=== PATIENT | female | born 1985 | race Caucasian/White ===

== ENCOUNTER 2017-02-26 12:36 | Outpatient (CLI) | payer OTHER ==
--- NOTE | 2017-02-27 07:40 | Ultrasound Report ---
OB ULTRASOUND: 02/26/2017 CLINICAL INDICATION: anatomy. TECHNIQUE: Real-time scanning was performed with parts counter representative static images obtained. LAST MENSTRUAL PERIOD 10/06/2016 Clinical Age 20 weeks 3 days US Age 20 weeks 1 day EFW Hadlock 331 g EFW% Hadlock --- Heart Rate 150 bpm EDC 07/13/2017 US EDC 07/15/2017 BPD [place] 20 weeks 4 days; Mean mm 48.2 HC [place] 19 weeks 6 days; Mean mm 172.7 AC [place] 20 weeks 3 days; Mean mm 151.5 FL Hadlock 19 weeks 5 days; Mean mm 31.4 Presentation variable Placental Location posterior Cervical Length 5.8 cm Amniotic Fluid 13.9 cm FINDINGS: There is a single viable intrauterine gestation, in variable position. heart rate is 150 BPM. The placenta is posterior, without evidence of previa. Amniotic fluid volume is normal, with an IGNACIO of 13.9. By size, the fetus measures 20.1 weeks (20.3 weeks by LMP). The following anatomic structures were visualized and appear normal: The intracranial contents, including the ventricles and posterior fossa; the lips and orbits; the spine; the heart, including 4 chamber view and outflow tracts, and diaphragm; the abdominal contents, including the stomach, the bilateral kidneys, and urinary bladder, as well as a normal 3 vessel cord insertion; 4 limbs. No free fluid or adnexal lesion is appreciated. IMPRESSION: SINGLE VIABLE INTRAUTERINE GESTATION, WITH SIZE IN KEEPING WITH LMP DATING. NORMAL ANATOMIC SURVEY. MTDD
== END 2017-02-26 12:37 | disposition home or self-care (01) ==
LOC: DI 12:36
PROVIDERS: ATTEND Nurse Practitioner Obstetrics & Gynecology
DX: Z36 Encounter for antenatal screening of mother (principal)
CPT/HCPCS: 76811

== ENCOUNTER 2017-04-09 11:21 | Outpatient (CLI) | payer OTHER ==
[2017-04-09 12:39] LABS: HCT - HEMATOCRIT 39.1 % (37.0-47.0); MEAN CORPUSCULAR HEMOGLOBIN 31.7 pg (27.0-31.0); MEAN CORPUSCULAR HGB CONC 33.2 g/dL (32.0-36.0); MEAN CORPUSCULAR VOLUME 95.6 fL (81.0-99.0); MEAN PLATELET VOLUME 8.4 fL (7.9-10.8); RED BLOOD COUNT 4.1 10^6/uL (4.20-5.40); RED CELL DISTRIBUTION WIDTH 13.4 % (12.0-15.0); WHITE BLOOD COUNT 12.2 x10^3/uL (4.8-10.8)
== END 2017-04-09 11:22 | disposition home or self-care (01) ==
LOC: LAB 11:21
PROVIDERS: ATTEND Nurse Practitioner Obstetrics & Gynecology
DX: Z36 Encounter for antenatal screening of mother (principal)
CPT/HCPCS: 36415; 82950; 86850

== ENCOUNTER 2017-06-10 16:06 | Outpatient (CLI) | payer OTHER | END 2017-06-10 16:07 | disposition home or self-care (01) | LOC: LAB.R 16:06 | PROVIDERS: ATTEND Registered Nurse | DX: Z36.85 Encounter for antenatal screening for Streptococcus B (principal) | CPT/HCPCS: 87081 ==

== ENCOUNTER 2017-07-20 00:42 | Inpatient (IN) | payer OTHER ==
[2017-07-20] MEDS ORDERED: OXYTOCIN 10 UNIT/ML VIAL IM ONE (01:13)
--- NOTE | 2017-07-20 01:20 | HISTORY & PHYSICAL EXAMINATION ---
Admit History - Instructions Chenega/Slash: -Left hand click circles element as positive or present. -Right hand click slashes element as negative or not present. - Visit Reason Visit Reason: Contractions (juan since 07/19/2017 @ 1600 w/ increased intensity since 0), Bloody show - : 1 Parity: 0 Premature: 0 Ectopic: 0 : 0 Care: positive: [facility], Other (transfer of care w/ relocation to [facility] from [place] @ 17 weeks' gestation) Risk/History: positive: None Complications This : positive: None Smoking Status: Never smoker - Mother's Labs Mother's Blood Type: positive: O Mother's RH: positive: Positive GBS: positive: Group B Step Negative Rubella Status: positive: Immune - Other Maternal History Other Maternal History: . Pre- weight 149lbs. Initial ultrasound 12/30/2016 at 12.1 wks gestation, Normal anatomy, nucal trans. 1.0mm (WNL), posterior placenta, normal cord insertion. Quad-neg. CF negative. 12/03/2016 Pap neg, GC/CT neg, Hgb 13.0, Hct 38.3, PLT 228, RPR non-reactive, Hep B non-reactive, O pos, antibody neg, Rubella immune, HIV non-reactive. Gtt WNL, CBC @ 28 weeks h/h 13.0/39.1 PLT 195K, FAS WNL, GBS negative. Jyoti presented for care to her previous provider @ 12 weeks' gestation w/ sure LMP & concordant 1st trimester US. She received consistent care for a total of 15 visits & gained a total of 39 pounds throughout her . She is well-supported by her , Darrick, and she plans limited intervention w/ an unmedicated delivery. She declines IV insertion & declines phlebotomy. Meds/Allgy - Home Medications Home Medications: Ambulatory Orders Medication Instructions Recorded Confirmed Pnv No.121/Iron/Folic Acid 1 each PO DAILY 07/20/17 07/20/17 [ Multivitamin Tablet] - Allergies Allergies/Adverse Reactions: Allergies Allergy/AdvReac Type Severity Reaction Status Date / Time No Known Drug Allergies Allergy Verified 07/20/17 01:22 Physical - Abdominal Exam Vital Signs: HR 77 BP 137/75 Contraction Frequency (min/apart): 2-3 Contraction Intensity: positive: Strong Uterine Resting Tone: positive: Soft - Monitoring Heart Rate Baseline: 140 Strip Review: positive: Category I - Presentation Presentation: positive: Vertex - Vaginal Exam Membranes: positive: Membranes intact Dilation (in cm): 7 Effacement (%): 100 Station: positive: 0 Cervical Position: positive: Anterior - Speculum Exam Speculum Exam Performed: positive: No - Other Notes Labor Progress Note/Additional Text: Jyoti is a 32 y/o @ 41 weeks' gestation by sure LMP consistent w/ 1st trimester US who received care beginning @ 12 weeks' gestation for a total of 15 visits. She had an intentional & had an uncomplicated course. She gained a total of 39# during the course of her . She screened negative for GBS @ 36 weeks' gestation. She received tdap & influenza vaccinations per CDC recommendations @ appropriate intervals during . She presents today w/ a complaint of uterine contractions intermittently since 1630 on 07/19/2017 w/ increasing intensity since 2229. She reports noticing increased bloody show & mucoid vaginal d/c, but she denies LOF. She reports good FM. She is hoping to have a minimally interventive labor & delivery experience & plans an unmedicated delivery. She is intending to utilizing breathing techniques & hydrotherapy for pain management. She is accompanied by her , Darrick, who is involved & very supportive. ROS: GEN: No fever, no malaise HEENT: No MONTOYA/vision changes LUNGS: no dyspnea, no wheezing, no cough HEART: no chest pain, no palpitations GI: no N/V/D, + BM 07/20/2017 : no dysuria, + mucoid vaginal d/c + bloody show, no LOF OB: +FM, + uterine contractions, increased intensity x3 hours, q 3 minutes MS: FROM, no pain, no swelling SKIN: No pruritus, no lesions NEURO: No numbness/tingling/weakness PSYCH: Mild anxiety, no depression PE: GEN: AAOX3, moderately uncomfortable, conversant gravid female HEENT: grossly normocephalic, atraumatic LUNGS: CTA b/l t/o HEART: RRR nls1s2, no M GI: Gravid, NT, lie longitudinal, presentation cephalic, position AIDA : No lesions, + bloody show, no LOF OB: EFM: BL 140bpm, + accels, no decels, mod variability; TOCO: UCs q2-3 min x60 -80 seconds, palpably strong; SVE: 7/100/0, IBOW, position AIDA MS: no edema, FROM t/o, negative Jessica's, no erythema SKIN: warm, dry, intact, no lesion NEURO: no focal deficit PSYCH: normal mood & affect, slight anxiety w/ discomfort w/ uterine contractions Plan for Labor - Plan For Labor : expectant Plan for Labor: Assessment: 32 y/o @ 41 weeks' gestation by 1st trimester US consistent w/ LMP in active, spontaneous labor Adequate pain control w/ desire for unmedicated labor/delivery GBS negative w/ IBOW FHTs cat I 1. Admit to [facility] as inpatient for active, spontaneous labor @ 41 weeks' gestation 2. Intermittent auscultation per protocol 3. Reviewed rationale for IV insertion/phlebotomy; pt articulates full understanding of risks & possible need for emergent insertion, elects IM Pitocin for AMTSL, declines IV insertion, declines phlebotomy 4. Hydrotherapy for discomfort @ present, labor support 5. Reassess cervical status w/ maternal urge to push 6. Anticipate 7. Reviewed plan of care w/ pt, partner & RN @ bedside; all in agreement, without concerns.
--- NOTE | 2017-07-20 02:45 | PROVIDER PROGRESS NOTE ---
Labor Progress Note - Uterine Monitoring Uterine Monitoring Mode: positive: Palpation Contraction Frequency (min/apart): 2-3 x90 seconds Contraction Intensity: positive: Strong Uterine Resting Tone: positive: Soft - Monitoring Monitor Mode: positive: Doppler/auscultation Heart Rate Baseline: 150 Decelerations: positive: None (no decreases auscultated through & after uterine contraction) - Vaginal Exam Dilation (in cm): deferred - Labor Progress Note Labor Progress Note/Additional Text: S: Jyoti reports increased pressure w/ uterine contractions, rates discomfort 10/10 when she is juan, no discomfort s/p contraction. Finding good relief w/ hydrotherapy, prefers to remain in tub. , Darrick , present @ bedside, supportive. O: AAOx3, uncomfortable gravid female IA: 150bpm, + increases, no decreases uterine contractions q2-3 min x90 seconds, palpably strong SVE deferred secondary to no clinical indication A: 32 y/o @ 41 weeks' gestation in spontaneous, active labor GBS negative, IBOW FHTs reassuring Adequate pain control w/ hydrotherapy; pt does not desire analgesia/anesthesia P: 1. continue hydrotherapy 2. Intermittent auscultation per protocol: q 30 minutes per AWHONN guidelines in active phase of 1st stage of labor 3. Reassess cervical status w/ maternal urge to push 4. Anticipate
[2017-07-20] MEDS ORDERED: LIDOCAINE 1% 50 ML MDV ONE (04:45)
[2017-07-20] MEDS ORDERED: HYDROCORTISONE 1% CREAM 28 GM TUBE PR PRN (05:17)
[2017-07-20] MEDS ORDERED: MAGNESIUM HYDROXIDE 2,400 MG/30 ML UDC PO PRN (05:17)
--- NOTE | 2017-07-20 05:29 | DELIVERY NOTE ---
Delivery Note - Labor Labor: positive: Spontaneous - Delivery Method Delivery Method: positive: Spontaneous vaginal delivery - Presentation Presentation: positive: Vertex, AIDA - left occiput anterior - Nuchal Cord Nuchal Cord: positive: None - Anesthetic Anesthetic Type: Anesthetic: positive: Lidocaine - 1% plain Volume: positive: Other (15mL) - Amniotic Fluid Description Amniotic Fluid Description: positive: Clear (SROM @ 0425) - Episiotomy Type Episiotomy Type: positive: None - Laceration Laceration: positive: 2nd degree, Perineal - Suture Suture Type: positive: Vicryl Suture Size: positive: 2-0, 3-0 - Delivery Outcome Delivery Outcome: positive: Livebirth - : positive: Placed in direct skin contact with mother, Suctioned, Bulb syringe, Stimulated, Warmed, [place] used, Warmer used [place] sex: positive: Female - Cord Cord: positive: 3 vessels - Placenta Placenta: positive: Intact, Spontaneous, Other (Trailing membranes, teased out w / Ring forceps) - Estimated Blood Loss Estimated Blood Loss (in cc): 300 - Post Delivery Events Post Delivery Events: positive: No post delivery events - Delivery Comments (Free Text/Narrative) Delivery Comments (Free Text/Narrative): Jyoti Riddle is a 32 y/o [id number] who presented @ 41 weeks' gestation in spontaneous, active labor @ 7cm of dilatation. She had experienced onset of noticeable contractions 07/19/2017 @ 1630 & dramatically increased intensity @ 2230. She labored & progressed spontaneously w/o analgesia & utilized hydrotherapy, direct labor support & breathing techniques for effective pain management. FHTs were monitored w/ monitor & handheld doppler & were reassuring t/o. She reported spontaneous urge to push & was found to be complete @ 0328, for a total first stage duration of 11 hours (6 hours of latent labor, 5 hours of active labor). She pushed w/ spontaneous urge utilizing stool to of viable female in AIDA position over a 2nd degree perineal laceration @ 0435, for a total 2nd stage duration of 1 hour, 7 minutes. SROM for moderate CAF @ 0425, for a total ruptured duration of 10 minutes. Infant stunned w/ good response to tactile stimulation & suction, lusty cry. Apgars 7 at 1 minute & 9 at 5 minutes. Placed in direct skin-to- skin contact w/ mother immediately following delivery. Delayed cord clamping until cessation of pulsation, then cord clamped x2 by CNM, cut by FOB. 3VC noted, cord blood obtained. 10u IM Pitocin administered following delivery of infant secondary to other nursing duties @ the time of delivery of anterior shoulder--modified AMTSL. Placenta delivered spontaneously, Tessy, @ 0445, for a total 3rd stage duration of 10 minutes. Trailing membranes teased out easily using ring forceps. Vagina & perineum inspected & 2nd degree perineal laceration noted. Mother assisted to bed & repair completed in normal, sterile fashion s/p infiltration w/ 15mL 1% lidocaine using 2-0 & 3-0 vicryl. Hemostatic & well-approximated. FF @ U-1. EBL 300mL. Mother & infant stable. Infant nuzzling @ breast w/in 30 minutes of delivery. FOB @ bedside, involved & very supportive. They have named their baby "Shayy Soto" & plan no pp contraception. Jyoti plans to return to work in 16 weeks & plans exclusive .
[2017-07-20] MEDS: IBUPROFEN 800 MG TABLET PO SCH ×3 (06:16→18:29)
[2017-07-20] MEDS: ACETAMINOPHEN 500 MG TABLET PO SCH ×2 (06:16→16:12)
[2017-07-20] MEDS: WITCH HAZEL/GLYCERIN 1 EACH MED..PAD TOP PRN ×2 (06:17→11:07)
[2017-07-20] MEDS: HYDROCORTISONE/PRAMOXINE 10 GM PR PRN ×2 (06:17→11:06)
[2017-07-20] MEDS: DOCUSATE SODIUM 100 MG CAPSULE PO SCH ×2 (10:55→20:54)
[2017-07-21] MEDS: ACETAMINOPHEN 500 MG TABLET PO SCH ×4 (01:13→22:34)
[2017-07-21] MEDS: IBUPROFEN 800 MG TABLET PO SCH ×5 (01:14→21:27)
[2017-07-21] MEDS: DOCUSATE SODIUM 100 MG CAPSULE PO SCH ×2 (09:27→21:27)
--- NOTE | 2017-07-21 10:23 | PROVIDER PROGRESS NOTE ---
Subjective - Prog Note Date Prog Note Date: 07/21/17 Prog Note Time: 09:30 - Subjective Pt reports feeling: Improved Subjective: Jyoti is doing well. She is ambulating & voiding w/o difficulty. She is passing flatus & tolerating a regular diet. She reports that she has minimal perineal discomfort & essentially no other discomfort. Her pain is well- controlled w/ non-opioid analgesia. She is well w/o discomfort. She has only slept 2 hours in the last 28 hours. She was up a lot last night w / the baby. Her partner, Darrick, is present @ the bedside & is very involved & supportive. She has additional excellent social support & will not be returning to work until October. Objective - Vital Signs/Intake & Output Reviewed Vital Signs: Yes Intake & Output: Intake & Output 07/18/17 07/19/17 07/20/17 07/21/17 23:59 23:59 23:59 23:59 Intake Total 200 Output Total 1600 Balance -1400 - Objective General Appearance: positive: No acute distress, Alert Eyes Bilateral: positive: Normal inspection, PERRL, EOMI ENT: positive: ENT inspection nml Respiratory: positive: Chest non-tender, No respiratory distress, Breath sounds nml Cardiovascular: positive: Regular rate & rhythm, No murmur Abdomen: positive: Non-tender, No distention, Other (FFU-2) Skin: positive: Color nml, No rash, Warm, Dry Extremities: positive: Non-tender, Full ROM, Nml appearance, No pedal edema. negative: Calf tenderness, Jessica's sign/cords Neurologic/Psychiatric: positive: Oriented x3, CN's nml (2-12), Motor nml, Sensation nml, Mood/affect nml Comments/Other: Breasts b/l s, nt. Nipples b/l intact & everted; colostrum easily expressible. Observed latch 10/10 Perineum w/ sutures intact, well-approximated, mild edema & areas of slight eccymosis, minimal lochia rubra Assessment/Plan - Problem List (1) (normal spontaneous vaginal delivery) Impression: Assessment: 32 y/o s/p w/ 2nd degree laceration w/ repair, PPD #1 Normal uterine involution Adequate pain control w/ non-opioid analgesia well Plan: 1. routine care 2. Extensive support provided & to continue in ongoing fashion 3. Anticipate d/c PPD#2
[2017-07-22] MEDS: IBUPROFEN 800 MG TABLET PO SCH ×2 (04:17→09:44)
--- NOTE | 2017-07-22 08:37 | Discharge Plan ---
Discharge Plan Disposition: 01 Home, Self Care Condition: Good Diet: Regular Activity Restrictions: pelvic rest x6 weeks Shower Restrictions: No (do not immerse in bath of water; may use sitz bath for stitches only) Driving Restrictions: No Weight Bearing: Full Weight Instruction Topics: Vaginal After, Breastfeed How To, Jaundice Signs Inf , Exercises Kegel Additional Instructions or Follow Up instructions: follow up x2 weeks w/ Matthew Naik CNM; call for earlier appointment as needed. No Smoking: If you smoke, Please STOP! Call for help. Follow-up with: Matthew Naik CNM, YESENIA [Provider Admit Priv/Credential] -
--- NOTE | 2017-07-22 08:41 | DISCHARGE SUMMARY ---
"Discharge Summary Admit Date: 07/20/17 Discharge Date: 07/22/17 Discharging Provider: matthew downs CNM Code Status: Attempt Resuscitation Condition at Discharge: Good Discharge Disposition: 01 Home, Self Care Discharge Facility [facility]: [facility] - DIAGNOSES Admission Diagnoses: 41 weeks gestation spontaneous active labor Discharge Diagnoses with Status of Each Condition: 2nd degree perineal laceration w/ repair - HPI History of Present Illness: Jyoti is a 32 y/o [id number] who was admitted in spontaneous, active labor @ 41 weeks' gestation. She was 7cm w/ IBOW upon admission. She declined IV insertion & phlebotomy. She labored unmedicated in the jacuzzi tub & progressed spontaneously to complete dilatation @ 0328. She pushed w/ spontaneous urge & experienced SROM for CAF @ 0425. She delivered vaginally over a 2nd degree perineal laceration @ 0435. apgars 7/9. Placenta delivered w/o incident @ 0445. EBL 300mL. Perineal laceration repaired w/o difficulty. w/in 30 minutes of delivery. - CONSULTS | PROCEDURES Procedures: repair of 2nd degree perineal laceration - HOSPITAL COURSE Hospital Course: , she is ambulating & voiding w/o difficulty. She is tolerating po intake & passing flatus. She is well w/ excellent latch. Her perineal sutures are intact & well-approximated & she has minimal lochia rubra. Her partner will have 2 weeks of pp leave to assist her & she has additional excellent social support. She plans to return to work in October. She plans condom use for contraception. She is able to fully articulate pp warning s/sx, including pp depression s/sx, and pp aftercare instructions. She is ready to leave the hospital. - ALLERGIES Allergies/Adverse Reactions: Allergies Allergy/AdvReac Type Severity Reaction Status Date / Time No Known Drug Allergies Allergy Verified 07/20/17 01:22 - MEDICATIONS Home Medications: Ambulatory Orders Medication Instructions Recorded Confirmed Pnv No.121/Iron/Folic Acid 1 each PO DAILY 07/20/17 07/20/17 [ Multivitamin Tablet] - PHYSICAL EXAM AT DISCHARGE General Appearance: positive: No acute distress, Alert Eyes Bilateral: positive: Normal inspection, PERRL, EOMI ENT: positive: ENT inspection nml Respiratory: positive: Chest non-tender, No respiratory distress, Breath sounds nml Cardiovascular: positive: Regular rate & rhythm, No murmur Abdomen: positive: Non-tender, No distention, Other (FFU-3) Skin: positive: Color nml, No rash, Warm, Dry Extremities: positive: Non-tender, Full ROM, Nml appearance, No pedal edema. negative: Calf tenderness, Jessica's sign/cords Neurologic/Psychiatric: positive: Oriented x3, CN's nml (2-12), Motor nml, Sensation nml, Mood/affect nml Physical Exam Other/Comments: Breasts b/l s, nt; nipples b/l intact & everted; colostrum readily expressible Perineum w/ sutures intact; well-approximated. Minimal edema & slight ecchymosis, no erythema. Minimal lochia rubra. - FOLLOW UP Follow Up: x2 weeks w/ Matthew Downs CNM, earlier PRN"
[2017-07-22] MEDS: DOCUSATE SODIUM 100 MG CAPSULE PO SCH (09:45)
[2017-07-22 13:00] VITALS: BP 122/81
--- NOTE | 2017-07-22 13:11 | Labor Flowsheet ---
Labor Flowsheet Datetime Report Generated by CPN: 07/22/2017 13:11 Datetime: 07/22/2017 11:48 VITAL SIGNS NBP Sys/Lory/Mean (mmHg): 122 : 81 : 89 Pulse: 76 LaborFlag: Labor Datetime: 07/22/2017 04:14 SpO2 (%): 99 Datetime: 07/20/2017 04:35 Comments: viable female Datetime: 07/20/2017 04:31 ASSESSMENT A Monitor Mode: Telemetry FHR Baseline Rate : 95 FHR Baseline Changes: Bradycardia Variability: Moderate 6-25 bpm Datetime: 07/20/2017 04:25 Preparation for Delivery: Setup for Delivery Datetime: 07/20/2017 04:15 Pushing Position: Pushing Squatting Pushing Progress: Descent with Pushing; Perineal Bulging; Presenting Part Visible; Pushing Effectiv jaden with Contractions Datetime: 07/20/2017 04:11 UTERINE ACTIVITY Monitor Mode: Palpation Frequency (min): 2 Quality: Strong Duration (sec): 55-60 Resting Tone (Palpate): Relaxed Contraction Comments: grunting with some pushing Decelerations: Variable Category: Category II Datetime: 07/20/2017 04:00 TEACHING Instructional Method: Verbal; Patient Instructed; Family/Support Person Instructed; Verbalized Unde rstanding Plan of Care: Vaginal Delivery STAGE 2 Pushing: Coached on Pushing; Urge to Push Datetime: 07/20/2017 03:43 Pattern: Normal: <= 5 Contractions in 10 Minutes Accelerations: 10X10 Datetime: 07/20/2017 03:30 Patient Position/Activity: Birthing Ball (Annotations: Using the Evelyn stool with CNM Milagrosa push ing with pt) Comfort Measures: Breathing/Relaxation; Back Rub Given (Annotations: Warm towels/compresses to perineum) Hygiene: Pilar Care Datetime: 07/20/2017 03:28 VAGINAL EXAM Dilatation (cm): 10.0 Effacement (%): 100 Station: 2 Exam by: Milagrosa Datetime: 07/20/2017 03:05 Stage of : Labor Respirations: 24 PAIN Pain Scale: 10 Pain Presence: Intermittent Pain Type: Sharp; Contraction; Stabbing Pain Location: Abdomen; Back Pain Goal: Declines pain med Pain Relief Measures: Comfort Measures (Annotations: warm compresses) Pain Coping: Breathing Through Contractions; Crying Datetime: 07/20/2017 03:01 Vaginal Bleeding: Normal Show Cervix, Consistency: Soft Cervix, Position: Anterior Datetime: 07/20/2017 02:56 PATIENT CARE Oxygen Method: Room Air Datetime: 07/20/2017 02:50 Provider Reviewed Strip: Yes COMMUNICATION Communication: Provider at Bedside Provider Notified (Name): CNM Milagrosa Notification Reason: Status; Labor Status; Uterine Activity; Pain Datetime: 07/20/2017 02:38 I/O Interventions: Ice Chips Given Patient Care Comments: More pressure; no urge to push; denies pop/gush of AF
== END 2017-07-22 12:05 | disposition home or self-care (01) | DRG 775 ==
LOC: WFO 00:42 → FBP 00:42 → WFO 01:10 → FBP 01:11
PROVIDERS: ADMIT Registered Nurse; ATTEND Registered Nurse
PROC: 0KQM0ZZ Repair Perineum Muscle, Open Approach (ICD-10-PCS; principal; 2017-07-20)
PROC: 10E0XZZ Delivery of Products of Conception, External Approach (ICD-10-PCS; 2017-07-20)
DX: O48.0 Post-term pregnancy (principal); O70.1 Second degree perineal laceration during delivery; Z3A.41 41 weeks gestation of pregnancy; Z37.0 Single live birth
CPT/HCPCS: 99213